=== PATIENT | male | born 1950 | race Caucasian/White ===

== ENCOUNTER → 2018-06-21 | Outpatient (CLI) | payer OTHER, MEDICARE ==
[~2018-06-21] MED LIST: IOPAMIDOL (ISOVUE-M 300) 15 ML VIAL ONE; LIDOCAINE 1% 300 MG/30 ML SDV ONE
[2018-06-21 09:37] LABS: INR 0.96 (0.83-1.16)
== END ==
LOC: FIMAGING 08:44
PROVIDERS: ATTEND Neurological Surgery
PROC: 3E0R3KZ Introduction of Other Diagnostic Substance into Spinal Canal, Percutaneous Approach (ICD-10-PCS; principal; 2018-06-21)
DX: M50.30 Other cervical disc degeneration, unspecified cervical region (principal); M99.71 Connective tissue and disc stenosis of intervertebral foramina of cervical region; Z98.1 Arthrodesis status
CPT/HCPCS: 62284; 72126; 72240; Q9967

== ENCOUNTER → 2018-07-18 | Outpatient (CLI) | payer OTHER, MEDICARE | LOC: FIMAGING 10:04 | PROVIDERS: ATTEND Internal Medicine | DX: I65.29 Occlusion and stenosis of unspecified carotid artery (principal); I10 Essential (primary) hypertension ==

== ENCOUNTER → 2018-07-20 | Outpatient (CLI) | payer OTHER, MEDICARE | LOC: FIMAGING 09:57 | PROVIDERS: ATTEND Internal Medicine | DX: I10 Essential (primary) hypertension (principal); Z86.73 Personal history of transient ischemic attack (TIA), and cerebral infarction without residual deficits ==